=== PATIENT | male | born 1960 | race Caucasian/White ===

== ENCOUNTER 2018-04-15 08:52 | Emergency (ER) | payer OTHER ==
[2018-04-15 08:58] VITALS: BP 159/87
[2018-04-15] MEDS ORDERED: METOPROLOL SUCCINATE 50 MG TAB.SR.24H PO ONE (09:17)
[2018-04-15] MEDS ORDERED: LOSARTAN POTASSIUM 50 MG TABLET PO ONE (09:17)
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
== END 2018-04-15 10:12 | disposition home or self-care (01) ==
LOC: ER 08:52
DX: Z76.0 Encounter for issue of repeat prescription (principal); I10 Essential (primary) hypertension
CPT/HCPCS: 99281